=== PATIENT | female | born 1950 | race Caucasian/White ===

== ENCOUNTER 2017-04-23 14:06 | Emergency (ER) | payer OTHER ==
[2017-04-23] MEDS ORDERED: Ibuprofen 800 MG TAB ONE (15:09)
--- NOTE | 2017-04-23 15:36 | RAD ---
2 VIEWS RIGHT FOREARM: Date: 04/23/17 HISTORY: Fall. FINDINGS: The distal aspect of the radius is not obtained on views of the forearm, but views of the right wris t are obtained on today's exam. On views of the wrist, there is evidence of an intraarticular and mi ldly comminuted fracture of the distal right radial metaphysis. There is no significant intraarticul ar step-off involving the fracture of the distal right radius. Views of the right elbow were also ob tained, and on the views of the elbow, there is evidence of a joint effusion with suggestion of a mi ldly impacted fracture involving the radial head. While this could be related to a rim of osteophyte s at the radial head, given the joint effusion, findings are worrisome for subtle and mildly impacte d fracture involving the radial head. No additional fracture or dislocation seen. IMPRESSION: 1. Mildly comminuted fracture distal right radial metaphysis. 2. Right elbow joint effusion, best seen on views of the elbow, with findings suggestive of a subtl e impacted fracture at the right radial head/neck junction. POS: [facility]
--- NOTE | 2017-04-23 15:37 | RAD ---
THREE VIEWS OF THE RIGHT WRIST: DATE: 04/23/17. COMPARISON: None. HISTORY: Fall, injury. FINDINGS: There is a distal radial fracture, best seen on the lateral examination involving the distal dorsal cortex. Fracture fragment is displaced posteriorly by approximately 3 mm. There appears to be an i ntraarticular fracture line involving the distal radial carpal joint. There is degenerative change involving the distal carpal row laterally. IMPRESSION: Subtle intraarticular mildly displaced distal right radial fracture. Recommend immobilization and f ollowup imaging. POS: [facility]
--- NOTE | 2017-04-23 15:37 | RAD ---
4 VIEWS RIGHT ELBOW: Date: 04/23/17 COMPARISON: None. HISTORY: Trauma, fall, pain. FINDINGS: On the lateral examination, there appears to be an elbow joint effusion, primarily anteriorly. There is mild impaction of the radial head with a probable fracture line at the base of the radial head. No displaced fracture or dislocation. IMPRESSION: Findings suggesting an acute impaction fracture of the radial head. POS: [facility]
== END 2017-04-23 16:00 | disposition home or self-care (01) ==
LOC: NAV ERS 14:06
DX: S52.501A Unspecified fracture of the lower end of right radius, initial encounter for closed fracture (principal); S52.121A Displaced fracture of head of right radius, initial encounter for closed fracture; S80.02XA Contusion of left knee, initial encounter; S80.01XA Contusion of right knee, initial encounter; W18.30XA Fall on same level, unspecified, initial encounter
CPT/HCPCS: 29105

== ENCOUNTER 2024-02-18 14:24 | Outpatient (CLI) | payer OTHER | END 2024-02-18 14:25 | disposition home or self-care (01) | LOC: NAV RAD 14:24 | PROVIDERS: ATTEND Family Medicine | DX: R05.1 Acute cough (principal) | CPT/HCPCS: 71046 ==